=== PATIENT | female | born 1955 ===

== ENCOUNTER 2024-04-01 12:30 | Inpatient (IN) | payer OTHER ==
[~2024-04-01] VITALS: Ht 157.5 cm; Wt 72.6 kg
[2024-04-01] MEDS ORDERED: COZAAR25 MG PO (14:54)
[2024-04-01] MEDS ORDERED: LIPITOR20 MG PO (14:54)
[2024-04-01 14:59] VITALS: BP 160/87
[2024-04-09] MEDS ORDERED: LOSARTAN POTASS50 MG (08:09)
[2024-04-09] MEDS ORDERED: CEFTRIAXONE SODIUM 2,000 MG VIAL ONE (09:41)
[2024-04-09] MEDS ORDERED: METRONIDAZOLE/SODIUM CHLORIDE 500 MG/100 ML PIGGYBACK IV ONE (09:41)
[2024-04-09] MEDS ORDERED: OxyCODONE HCL 5 MG TABLET (ROXICODONE) PO PRN (11:30)
[2024-04-09] MEDS ORDERED: DEXTROSE 50 % IN WATER 0.5 G/ML DISP.SYRIN IV PRN (11:30)
[2024-04-09] MEDS ORDERED: MORPHINE SULFATE 4 MG/ML CARTRIDGE IV PRN (11:30)
[2024-04-09] MEDS ORDERED: RINGERS SOLUTION,LACTATED 1,000 ML IV SCH (11:30)
[2024-04-09] MEDS ORDERED: ONDANSETRON HCL 2 MG/ML VIAL IV PRN (11:30)
[2024-04-09] MEDS ORDERED: SUGAMMADEX SODIUM 200 MG/2 ML VIAL IV ONE (12:00)
[2024-04-09] MEDS ORDERED: MORPHINE SULFATE 2 MG/ML CARTRIDGE IV ONE ×2 (12:20→12:50)
[2024-04-09] MEDS ORDERED: SIMETHICONE 125 MG CAPSULE PO SCH (13:00)
[2024-04-09] MEDS ORDERED: HYOSCYAMINE SULFATE 0.125 MG TAB.SUBL SL SCH (13:00)
[2024-04-09] MEDS ORDERED: ENALAPRILAT DIHYDRATE 1.25 MG/ML VIAL IV ONE ×2 (13:23→13:55)
[2024-04-09] MEDS ORDERED: ACETAMINOPHEN 500 MG GEL..CAP PO SCH (14:00)
[2024-04-09] MEDS ORDERED: MORPHINE SULFATE 4 MG/ML VIAL IV ONE (14:35)
[2024-04-09] MEDS ORDERED: ONDANSETRON HCL 2 MG/ML VIAL IV ONE (16:50)
[2024-04-09] MEDS ORDERED: POLYETHYLENE GLYCOL 3350 17 GM BLIST.PACK PO SCH (17:00)
[2024-04-09] MEDS ORDERED: GABAPENTIN 300 MG CAPSULE PO SCH (17:00)
[2024-04-09] MEDS ORDERED: CELECOXIB 200 MG CAPSULE PO SCH (17:00)
[2024-04-09] MEDS ORDERED: METOCLOPRAMIDE HCL 5 MG/ML VIAL IV SCH (17:00)
[2024-04-09] MEDS ORDERED: METOCLOPRAMIDE HCL 5 MG/ML VIAL ONE (17:01)
[2024-04-09] MEDS ORDERED: CELECOXIB 200 MG CAPSULE PO ONE (17:02)
[2024-04-09] MEDS ORDERED: SIMETHICONE 125 MG CAPSULE PO ONE (17:02)
[2024-04-09] MEDS ORDERED: GABAPENTIN 300 MG CAPSULE PO ONE (17:02)
[2024-04-09] MEDS ORDERED: HYOSCYAMINE SULFATE 0.125 MG TAB.SUBL ONE (17:02)
[2024-04-09 17:23] LABS: HEMATOCRIT 40.9 % (36.0-45.00); HEMOGLOBIN 13.8 g/dL (12.0-15.00); MEAN CELL VOLUME 87.4 fL (80.00-100.00); MEAN CORPUSCULAR HEMOGLOBIN 29.4 pg (27.00-32.0); MEAN CORPUSCULAR HGB CONC 33.7 g/dl (32.0-36.0); RED BLOOD COUNT 4.68 M/uL (4.00-6.00); RED CELL DISTRIBUTION WIDTH 14.3 % (11.5-14.5)
[2024-04-09 18:05] LABS: PLATELET COUNT 97 K/uL (150-450)
[2024-04-09 18:54] VITALS: BP 146/78; O2SAT 93
[2024-04-09] MEDS ORDERED: FAMOTIDINE/PF 20 MG/2 ML VIAL IV PUSH SCH (21:00)
[2024-04-10] VITALS: BP 161/63; O2SAT 96
[2024-04-10 06:58] LABS: HEMATOCRIT 35.4 % (36.0-45.00); HEMOGLOBIN 12.1 g/dL (12.0-15.00); MEAN CORPUSCULAR HEMOGLOBIN 29.9 pg (27.00-32.0); MEAN CORPUSCULAR HGB CONC 34.3 g/dl (32.0-36.0); RED BLOOD COUNT 4.07 M/uL (4.00-6.00); RED CELL DISTRIBUTION WIDTH 14.2 % (11.5-14.5)
[2024-04-10 07:06] LABS: PLATELET COUNT 106 K/uL (150-450)
[2024-04-10 07:53] LABS: ALBUMIN 2.8 gm/dL (3.4-5.0); CALCIUM 8.6 mg/dL (8.5-10.1); CREATININE SERUM 0.64 mg/dL (0.55-1.02); GFR 91.74; POTASSIUM 3.87 mEq/L (3.5-5.1)
[2024-04-10 08:00] VITALS: BP 93/60; O2SAT 98
[2024-04-10] MEDS ORDERED: LACTULOSE 20 G/30 ML BLIST.PACK PO SCH (09:00)
[2024-04-10] MEDS ORDERED: LACTOBACILLUS ACIDOPHILUS 1 CAP CAP PO SCH (09:00)
[2024-04-10] MEDS ORDERED: LOSARTAN POTASSIUM 25 MG TABLET PO SCH (09:00)
[2024-04-10 16:00] VITALS: BP 110/62; O2SAT 99
[2024-04-10] MEDS ORDERED: ENOXAPARIN SODIUM 40 MG/0.4 ML SYRINGE SUBCUTANEO SCH (17:00)
[2024-04-11 00:33] VITALS: BP 121/71; O2SAT 98
[2024-04-11 08:00] VITALS: BP 120/63; O2SAT 98
[2024-04-11] MEDS ORDERED: ENOXAPARIN SODIUM 40 MG/0.4 ML SYRINGE SUBCUTANEO SCH (09:00)
[2024-04-11 16:34] VITALS: BP 137/68; O2SAT 98
[2024-04-12 00:28] VITALS: BP 161/88; O2SAT 94
[2024-04-12 08:59] VITALS: BP 185/88; O2SAT 98
== END 2024-04-12 15:21 | disposition home or self-care (01) | DRG 329 ==
LOC: EDUNIT# 12:30 → O/R 04-09 05:30 → SURH 04-09 11:00
PROVIDERS: ADMIT Colon & Rectal Surgery; ATTEND Colon & Rectal Surgery
PROC: 0DBP4ZZ Excision of Rectum, Percutaneous Endoscopic Approach (ICD-10-PCS; 2024-04-09)
PROC: 07BB4ZZ Excision of Mesenteric Lymphatic, Percutaneous Endoscopic Approach (ICD-10-PCS; 2024-04-09)
PROC: 0DJD8ZZ Inspection of Lower Intestinal Tract, Via Natural or Artificial Opening Endoscopic (ICD-10-PCS; 2024-04-09)
PROC: 0DTN4ZZ Resection of Sigmoid Colon, Percutaneous Endoscopic Approach (ICD-10-PCS; principal; 2024-04-09 11:00)
DX: C18.7 Malignant neoplasm of sigmoid colon (principal); K65.8 Other peritonitis; C77.2 Secondary and unspecified malignant neoplasm of intra-abdominal lymph nodes; K92.1 Melena; I10 Essential (primary) hypertension; E78.5 Hyperlipidemia, unspecified; K57.30 Diverticulosis of large intestine without perforation or abscess without bleeding

== ENCOUNTER 2024-04-08 05:30 | Day surgery (SDC) | payer OTHER ==
[~2024-04-08 05:30] MED LIST: COZAAR25 MG PO; LIPITOR20 MG PO
[2024-04-08] MEDS ORDERED: FLUMAZENIL 0.5 MG/5 ML ML IV STA (13:25)
[2024-04-08] MEDS ORDERED: MIDAZOLAM HCL 2 MG/2 ML VIAL IV ONE (13:30)
[2024-04-08] MEDS ORDERED: DIPHENHYDRAMINE HCL 50 MG/ML VIAL 1ML IV ONE (13:30)
[2024-04-08] MEDS ORDERED: fentaNYL CITRATE 50 MCG/ML AMPUL IV PUSH ONE (13:30)
[2024-04-09] MEDS ORDERED: LOSARTAN POTASS50 MG (08:09)
== END 2024-04-08 14:45 | disposition home or self-care (01) ==
LOC: AMB-ENDOS 05:30 → CIR.AMB 12:45 → AMB-ENDOS 14:45
PROVIDERS: ATTEND Colon & Rectal Surgery
DX: D12.5 Benign neoplasm of sigmoid colon (principal); Z85.038 Personal history of other malignant neoplasm of large intestine